=== PATIENT | female | born 1945 | race Caucasian/White ===

== ENCOUNTER 2016-08-27 13:39 | Emergency (ER) | payer MEDICARE, OTHER ==
[~2016-08-27] VITALS: Ht 165.1 cm; Wt 85.0 kg
[~2016-08-27 13:39] MED LIST: ALPR1TAB7 PO; AMLO5TAB4 PO; ASPI325T4 PO; ATOR20TA38 PO; CLON-379 PO; HYDR-3672 PO; LEVO137T24 PO; NEBI5TAB9 PO; SPIR25TA PO; Valsartan PO
[2016-08-27 13:44] VITALS: Ht 165.1 cm; Wt 85.0 kg
[2016-08-27] MEDS ORDERED: CARB15DR48 RIGHT EAR (16:29)
[2016-08-27] MEDS ORDERED: MECL-77 PO (16:29)
[2016-08-27] MEDS ORDERED: AMOX1TAB10 PO (16:29)
[2016-08-27] MEDS ORDERED: ONDA4TAB14 PO (16:29)
[2016-08-27 16:49] VITALS: BP 149/89; PULSE 79
--- NOTE | 2016-08-27 17:24 | ERD ---
ER Documentation Chief Complaint Date/Time DATE: 08/27/16 TIME: 17:21 Chief Complaint DIZZINESS,WEAKNESS,NAUSEA,CHEST PRESSURE.HX STENT PLACEMENT. HPI Patient is a 62-year-old female with coronary disease and hypertension who presents with ear pain. One month ago she started with right-sided ear pain. She was given a prescription for antibiotic drops at that time. It went away. 2 days ago however the ear pain came back and now she felt dizzy and out of balance. She also had a headache and decreased hearing. She says "it feels like I am hearing ocean water". The pain was worse today. She has had no treatment as of yet. Her primary doctor is Dr. Howard. Upon review of old medical records the patient has multiple visits to the ER for various complaints. ROS All systems reviewed and are negative except as per history of present illness. Medications Home Meds Active Scripts Ondansetron (Ondansetron Odt) 4 Mg Tab.rapdis, 4 MG PO Q6H Y for NAUSEA AND/OR VOMITING, #30 TAB Prov:CHASITY RICARDO MD 08/27/16 Meclizine Hcl* (Meclizine Hcl*) 25 Mg Tablet, 25 MG PO TID, #10 TAB Prov:CHASITY RICARDO MD 08/27/16 Carbamide Peroxide* (Debrox*) 6.5% - 15 Ml Drops, 10 DROP RIGHT EAR BID, #1 BOTTLE Prov:CHASITY RICARDO MD 08/27/16 Amoxicillin/Potassium Clav (Amox-Clav 875-125 mg Tablet) 875-125 mg Tab, 1 TAB PO BID for 7 Days, #14 TAB Prov:CHASITY RICARDO MD 08/27/16 [Valsartan] 80 MG TAB No Conflict Check, 80 MG PO BID for 30 Days, TAB Prov:EUGENIA COBURN MD 09/06/15 Spironolactone* (Aldactone*) 25 Mg Tab, 12.5 MG PO BID DIURETICS for 30 Days, TAB Prov:EUGENIA COBURN MD 09/06/15 Nebivolol* (Bystolic*) 5 Mg Tab, 5 MG PO DAILY for 30 Days, TAB Prov:EUGENIA COBURN MD 09/06/15 Atorvastatin Calcium* (Atorvastatin Calcium*) 20 Mg Tab, 40 MG PO HS for 30 Days , TAB Prov:EUGENIA COBURN MD 09/06/15 Amlodipine Besylate* (Norvasc*) 5 Mg Tab, 5 MG PO BID for 30 Days, TAB Prov:EUGENIA COBURN MD 09/06/15 Reported Medications Levothyroxine Sodium* (Synthroid*) 137 Mcg Tablet, 137 MCG PO AC BREAKFAST, #30 09/03/15 Alprazolam* (Alprazolam*) 1 Mg Tablet, 1 MG PO BID Y for ANXIETY, #60 09/03/15 Hydralazine Hcl* (Apresoline*) 50 Mg Tab, 50 MG PO BID, #60 09/03/15 Atorvastatin Calcium* (Atorvastatin Calcium*) 20 Mg Tablet, 20 MG PO HS, TAB 09/11/14 Aspirin* (Aspirin*) 325 Mg Tablet, 325 MG PO DAILY, TAB 09/08/14 Clonidine Hcl* (Clonidine Hcl*) 0.1 Mg Tab, 0.1 MG PO DAILY Y for ELEVATED BLOOD PRESSURE, TAB 09/08/14 Allergies Allergies: Coded Allergies: No Known Allergy (Verified , 09/05/15) PMhx/Soc History of Surgery: Yes (APPENDECTOMY) Anesthesia Reaction: No Hx Neurological Disorder: No Hx Respiratory Disorders: No Hx Cardiac Disorders: Yes (CAD, HTN,STENT PLACEMENT) Hx Miscellaneous Medical Probl: No Hx Alcohol Use: No Hx Substance Use: No Hx Tobacco Use: No Smoking Status: Never smoker FmHx Family History: No diabetes Physical Exam Vitals Vital Signs Date Time Temp Pulse Resp B/P Pulse Ox O2 Delivery O2 Flow Rate FiO2 08/27/16 16:49 79 149/89 08/27/16 13:44 98.7 67 18 152/69 98 Physical Exam Const: No acute distress Head: Atraumatic Eyes: Normal Conjunctiva ENT: Right-sided ear pain with cerumen impaction and likely fluid behind the ear Neck: Full range of motion..~ No meningismus. Resp: Clear to auscultation bilaterally Cardio: Regular rate and rhythm, no murmurs Abd: Soft, non tender, non distended. Normal bowel sounds Skin: No petechiae or rashes Back: No midline or flank tenderness Ext: No cyanosis, or edema Neur: Awake and alert, cranial nerves II through XII are intact, strength is 5 out of 5 in all 4 extremities, no slurred speech Psych: Normal Mood and Affect Procedures/MDM Patient is a 70-year-old female presents with what appears to be an acute otitis media and cerumen impaction. I believe this is causing her dizziness. At this point I doubt stroke, intrarenal mass, or urge cranial hemorrhage. I do not believe the patient requires a CT scan of the brain at this time. I believe outpatient management is appropriate. The patient can return for any worsening symptoms. I will give a prescription for Augmentin, Debrox, meclizine , and Zofran. She should follow-up with the primary doctor within 24-48 hours. Departure Diagnosis: Primary Impression: Otitis media Otitis media type: unspecified Laterality: right Chronicity: unspecified Qualified Code: H66.91 - Right otitis media, unspecified chronicity, unspecified otitis media type Additional Impressions: Dizziness Cerumen impaction Laterality: right Qualified Code: H61.21 - Impacted cerumen of right ear Patient Instructions: Inner Ear Problems: Causes of Dizziness (Vertigo), Otitis Media, Abx Tx (Adult) Additional Instructions: Call your primary care doctor TOMORROW for an appointment during the next 1-2 days.See the doctor sooner or return here if your condition worsens before your appointment time. CHASITY RICARDO MD Aug 27, 2016 17:24
== END 2016-08-27 16:50 | disposition home or self-care (01) ==
LOC: E/R 13:39
DX: H66.91 Otitis media, unspecified, right ear (principal); R42 Dizziness and giddiness; H61.21 Impacted cerumen, right ear; I25.10 Atherosclerotic heart disease of native coronary artery without angina pectoris; I10 Essential (primary) hypertension; Z79.82 Long term (current) use of aspirin
CPT/HCPCS: 99284

== ENCOUNTER 2017-12-19 19:37 | Inpatient (IN) | END 2017-12-21 13:31 | disposition home or self-care (01) | DRG 69 ==

== ENCOUNTER 2018-05-09 20:29 | Emergency (ER) | END 2018-05-09 23:50 | disposition home or self-care (01) ==

== ENCOUNTER 2018-08-27 10:14 | Emergency (ER) | payer MEDICARE, OTHER ==
[~2018-08-27] VITALS: Ht 152.4 cm; Wt 87.2 kg
[~2018-08-27 10:14] MED LIST changes: +ALBU18HF INHALATION; -ALPR1TAB7 PO; +AMLO-147 PO; -AMLO5TAB4 PO; +ASPI325T30 PO; -ASPI325T4 PO; +AZIT250T PO; +CARB15DR50 RIGHT EAR; +IBUP-1542 PO; -LEVO137T24 PO; +LEVO137T30 PO; +MECL-77 PO; +ONDA4TAB14 PO
[2018-08-27 10:48] VITALS: Ht 152.4 cm; Wt 87.2 kg
[2018-08-27] MEDS ORDERED: ONDANSETRON (ODT) 4 MG TAB ODT STA (12:17)
[2018-08-27] MEDS ORDERED: KETOROLAC 30 MG INJ IM STA (12:17)
[2018-08-27] MEDS ORDERED: ACETAMINOPHEN 500 MG TAB PO STA (12:17)
[2018-08-27] MEDS ORDERED: D-ME473S2 PO (13:25)
[2018-08-27] MEDS ORDERED: ACET500C5 PO (13:25)
[2018-08-27] MEDS ORDERED: AZIT250T PO (13:25)
--- NOTE | 2018-08-27 13:28 | ERD ---
ER Documentation Chief Complaint Chief Complaint cough, fever, runny nose, and body ache x 2 days HPI 72-year-old female presents with 3-day history of productive cough, body aches, fever. She denies chest pain, vomiting, abdominal pain, urinary complaints. ROS All systems reviewed and are negative except as per history of present illness. Medications Home Meds Active Scripts Dextromethorphan Hb-Promethazine Hcl* (Promethazine DM* Syrup) 473 Ml Syrup, 5 ML PO Q6 PRN for COUGH for 5 Days, ML Prov:DUNIA MARIE MD 08/27/18 Azithromycin* (Zithromax*) 250 Mg Tablet, 250 MG PO .ZPAERIN DIRECTED, #6 TAB TAKE 500 MG (2 TABS) THE FIRST DAY THEN 250 MG (1 TAB) DAYS 2-5 Prov:DUNIA MARIE MD 08/27/18 Acetaminophen* (Tylophen*) 500 Mg Capsule, 1 CAP PO Q6H PRN for PAIN AND OR ELEVATED TEMP, #15 CAP Prov:DUNIA MARIE MD 08/27/18 Albuterol Sulfate* (Ventolin HFA*) 18 Gm Hfa.aer.ad, 2 PUFF INHALATION Q4H, #1 INHALER Prov:WILLOW TOVAR 05/09/18 Ibuprofen* (Motrin*) 600 Mg Tab, 600 MG PO Q6, #30 TAB Prov:WILLOW TOVAR 05/09/18 Azithromycin* (Zithromax*) 250 Mg Tablet, 250 MG PO .ZPACK DIRECTED, #6 TAB TAKE 500 MG (2 TABS) THE FIRST DAY THEN 250 MG (1 TAB) DAYS 2-5 Prov:WILLOW TOVAR 05/09/18 Ondansetron (Ondansetron Odt) 4 Mg Tab.rapdis, 4 MG PO Q6H PRN for NAUSEA AND/OR VOMITING, #30 TAB Prov:CHASITY RICARDO MD 08/27/16 Meclizine Hcl* (Meclizine Hcl*) 25 Mg Tablet, 25 MG PO TID, #10 TAB Prov:CHASITY RICARDO MD 08/27/16 Carbamide Peroxide* (Debrox*) 6.5% - 15 Ml Drops, 10 DROP RIGHT EAR BID, #1 BOTTLE Prov:CHASITY RICARDO MD 08/27/16 [Valsartan] 80 MG TAB No Conflict Check, 80 MG PO BID for 30 Days, TAB Prov:EUGENIA COBURN MD 09/06/15 Spironolactone* (Aldactone*) 25 Mg Tab, 12.5 MG PO BID DIURETICS for 30 Days, TAB Prov:EUGENIA COBURN MD 09/06/15 Nebivolol* (Bystolic*) 5 Mg Tab, 5 MG PO DAILY for 30 Days, TAB Prov:EUGENIA COBURN MD 09/06/15 Atorvastatin Calcium* (Atorvastatin Calcium*) 20 Mg Tab, 40 MG PO HS for 30 Days, TAB Prov:EUGENIA COBURN MD 09/06/15 Reported Medications Amlodipine Besylate* (Amlodipine Besylate*) 10 Mg Tablet, 5 MG PO DAILY, #30 TAB 12/19/17 Hydralazine Hcl* (Hydralazine Hcl*) 50 Mg Tab, 50 MG PO TID, #90 TAB 12/19/17 Hydralazine Hcl* (Hydralazine Hcl*) 50 Mg Tab, 50 MG PO Q6H PRN for ELEVATED BLOOD PRESSURE, #60 TAB 12/19/17 Levothyroxine Sodium* (Synthroid*) 137 Mcg Tablet, 137 MCG PO AC BREAKFAST, #30 09/03/15 Aspirin* (Aspirin*) 325 Mg Tablet, 325 MG PO DAILY, TAB 09/08/14 Clonidine Hcl* (Clonidine Hcl*) 0.1 Mg Tab, 0.1 MG PO DAILY PRN for ELEVATED BLOOD PRESSURE, TAB 09/08/14 Allergies Allergies: Coded Allergies: No Known Allergy (Unverified , 05/10/18) PMhx/Soc History of Surgery: No Anesthesia Reaction: No Hx Neurological Disorder: Yes (TIA) Hx Respiratory Disorders: Yes (BRONCHITIS) Hx Cardiac Disorders: Yes (HTN, STENT ) Hx Psychiatric Problems: No Hx Miscellaneous Medical Probl: No Hx Alcohol Use: Yes Hx Substance Use: No Hx Tobacco Use: No Smoking Status: Never smoker FmHx Family History: No diabetes, No coronary disease, No other Physical Exam Vitals Vital Signs Date Temp Pulse Resp B/P (MAP) Pulse Ox O2 O2 Flow FiO2 Time Delivery Rate 08/27/18 100.2 65 18 139/65 100 Room Air 13:40 (89) 08/27/18 38.3 12:40 08/27/18 101.0 76 20 183/86 97 10:48 (118) Physical Exam Const: No acute distress Head: Atraumatic Eyes: Normal Conjunctiva ENT: Normal External Ears, Nose and Mouth. TMs and oropharynx normal. Neck: Full range of motion. No meningismus. Resp: Clear to auscultation bilaterally coarse cough without rales, wheezing or retractions. Cardio: Regular rate and rhythm, no murmurs Abd: Soft, non tender, non distended. Normal bowel sounds Skin: No petechiae or rashes Back: No midline or flank tenderness Ext: No cyanosis, or edema Neur: Awake and alert Psych: Normal Mood and Affect Results 24 hrs Current Medications Medications Dose Sig/Charis Start Time Status Last (Trade) Ordered Route PRN Stop Time Admin Dose Reason Admin Ondansetron 8 mg ONCE STAT 08/27/18 DC 08/27/18 HCl (Zofran ODT 12:17 12:40 Odt) 08/27/18 12:19 500 mg ONCE STAT 08/27/18 DC 08/27/18 Acetaminophen PO 12:17 12:40 (Tylenol 08/27/18 12:19 Tab) Ketorolac 30 mg ONCE STAT 08/27/18 DC Tromethamine IM 12:17 (Toradol) 08/27/18 12:19 Procedures/MDM Chest X-ray 1V Interpreted by me: Soft Tissue: No acute abnormalities Bones: No acute abnormalities Mediastinum/Cardiac Silhouette/Lungs: No acute abnormalities impression-normal 1 view chest x-ray Fluids a swab negative. Patient presents with fever and URI symptoms last 3 days. She has notes of hypoxemia, rest or stress, signs of pneumonia. We will treat empirically given patient request and family concern with Zithromax, promethazine, fever control although this may be viral illness. She has no signs of cardiac chest pain, abdominal pain, additional concerning symptoms. The patient was stable with no new complaints during the ER course. Clinically, there is no current evidence to suggest meningitis, sepsis, acute abdomen, pneumonia, stroke, acute coronary syndrome, pulmonary embolism, aortic dissection or any other emergent condition appearing to require further evaluation or hospitalization. Patient counseled regarding my diagnostic impression and care plan. Prior to discharge all questions answered. Pt agrees with treatment plan and understands strict return precautions. Pt is instructed to follow up with primary care provider within 24- 48 hours. Precautionary instructions provided including instructions to return to the ER if not improving or for any worsening or changing symptoms or concerns. She has elevated blood pressure is advised to follow-up with her primary doctor and continue hypertensive medications. She has no evidence of end organ damage, signs of hypertensive emergency. Departure Diagnosis: Primary Impression: URI, acute Additional Impressions: Fever Fever type: unspecified Qualified Codes: R50.9 - Fever, unspecified Hypertension Hypertension type: unspecified Qualified Codes: I10 - Essential (primary) hypertension Condition: Stable Patient Instructions: Bronchitis, Antiobiotic Treatment (Adult), Fever Control (Adult) Additional Instructions: Flu swab and x-ray negative. Will treat for bronchitis. Recheck for new or worsening symptoms with primary care doctor. Take Tylenol every 4 hours for fever. DUNIA MARIE MD Aug 27, 2018 13:28
[2018-08-27 13:40] VITALS: BP 139/65; PULSE 65; RESP 18
== END 2018-08-27 13:41 | disposition home or self-care (01) ==
LOC: FTE 10:14
DX: J06.9 Acute upper respiratory infection, unspecified (principal); I10 Essential (primary) hypertension; Z79.82 Long term (current) use of aspirin; Z86.73 Personal history of transient ischemic attack (TIA), and cerebral infarction without residual deficits; Z98.61 Coronary angioplasty status
CPT/HCPCS: 71045; 87400; 99284; J1885